=== PATIENT | female | born 1990 | race Caucasian/White ===

== ENCOUNTER 2019-05-07 06:24 | Inpatient (IN) | payer MEDICAID ==
[~2019-05-07] VITALS: Ht 157.5 cm; Wt 77.2 kg
[2019-05-07] VITALS (12 sets, daily range): BP systolic 91–126; BP diastolic 53–78; BMI 22.0
[2019-05-07 07:07] LABS: HEMATOCRIT 35.3 % (36.0-48.0); HEMOGLOBIN 12.1 g/dL (12-16); MCH 26.5 pg (26.0-34.0); MCHC 34.3 g/dL (31.0-37.0); MCV 77.4 fL (80.0-100.0); PLATELET COUNT 61 10x3/uL (130-400); RBC 4.56 10x6/uL (4.00-5.40); RDW 18.1 % (11.5-14.5); WBC 31.6 10x3/uL (4.8-10.8)
[2019-05-07 07:10] LABS: APTT 27.3 SECONDS (22.8-39.4); INR 1.65 (0.85-1.17); PROTIME 19.3 SECONDS (11.6-15.0)
[2019-05-07 07:30] LABS: ALBUMIN 2.3 g/dL (3.4-5.0); ALKALINE PHOSPHATASE 144 U/L (46-116); ALT (SGPT) 25 U/L (10-68); BILIRUBIN - TOTAL 4.57 mg/dL (0.2-1.3); CALC OSMOLALITY 249 mosm/kg (275-300); CALCIUM 7.5 mg/dL (8.5-10.1); CARBON DIOXIDE 22.5 mmol/L (21.0-32.0); CHLORIDE - SERUM 90 mmol/L (98-107); CKMB 0.1 U/L (0.0-3.6); CREATINE KINASE 20 UL (21-215); GLUCOSE 102 mg/dL (74-106); PROTEIN - SERUM 6.3 g/dL (6.4-8.2); SODIUM 125 mmol/L (136-145); TROPONIN-I < 0.017 ng/mL (0.000-0.060); UREA NITROGEN 7 mg/dL (7-18); eGFR NON AFRICAN AMERICAN 70 mL/min (90-120)
[2019-05-07 07:31] LABS: LYMPHOCYTES 1 % (15-50); MONOCYTES 2 % (2-11); NEUTROPHILS 94 % (40-80); PLATELET ESTIMATE DECREASED; PLATELET MORPHOLOGY GIANT PLTS PRESENT
[2019-05-07 07:32] LABS: TOXIC GRANULATION 2+
[2019-05-07 07:40] LABS: POTASSIUM - SERUM 2.7 mmol/L (3.5-5.1)
--- NOTE | 2019-05-07 07:57 | NUR ---
ASSISTED PT TO RESTROOM AND BACK TO BED. PT HAS STAFF MEMBER FROM [facility] AT BEDSIDE WITH HER. NO FURTHER NEEDS AT THIS TIME.
[2019-05-07 08:21] LABS: UDS - AMPHET NEGATIVE QUAL (NEGATIVE); UDS - BARB NEGATIVE QUAL (NEGATIVE); UDS - BENZO NEGATIVE QUAL (NEGATIVE); UDS - COCAINE NEGATIVE QUAL (NEGATIVE); UDS - OPIATE POSITIVE QUAL (NEGATIVE); UDS - PCP NEGATIVE QUAL (NEGATIVE); UDS - THC NEGATIVE QUAL (NEGATIVE)
[2019-05-07 08:29] LABS: APPEARANCE CLEAR (CLEAR); COLOR YELLOW (YELLOW)
[2019-05-07 08:30] LABS: BILIRUBIN NEGATIVE (NEGATIVE); GLUCOSE NEGATIVE (NEGATIVE); KETONE NEGATIVE (NEGATIVE); NITRITE NEGATIVE (NEGATIVE); PROTEIN NEGATIVE (NEGATIVE); UROBILINOGEN NORMAL (NORMAL); WHITE CELLS - URINE 0-5 /hpf (NEGATIVE)
[2019-05-07 08:31] LABS: BACTERIA FEW /hpf (NEGATIVE); EPITHELIAL CELLS OCC /hpf (0-5); RED CELLS - URINE NONE SEEN /hpf (0-5)
[2019-05-07 09:18] LABS: CKMB 0.2 U/L (0.0-3.6); CREATINE KINASE 17 UL (21-215)
[2019-05-07 09:19] LABS: TROPONIN-I < 0.017 ng/mL (0.000-0.060)
--- NOTE | 2019-05-07 10:00 | NUR ---
PT C/O PAIN TO RIGHT FOOT. RIGHT FOOT APPEARS MODERATELY SWOLLEN.
--- NOTE | 2019-05-07 11:35 | NUR ---
ICU OPTOMETRIC TECHNICIAN CALLED TO SAY THEY ARE CHANGING PT'S ROOM NUMBER TO 2309 AND ROOM IS DIRTY. PT WILL BE TRANSPORTED SOON ROOM IS CLEAN.
--- NOTE | 2019-05-07 11:50 | NUR ---
CLINDAMYCIN COMPLETE AT THIS TIME.
--- NOTE | 2019-05-07 12:04 | NUR ---
PATIENT TRANSFERRED TO ICU AT THIS TIME.
[2019-05-07 14:35] LABS: HCG SERUM NEGATIVE (NEGATIVE)
--- NOTE | 2019-05-07 21:00 | NUR ---
PT C/O FEELING ANXIOUS. SHE APPEARS RESTLESS. LIBRIUM AND ATIVAN GIVEN SCHEDULED. SNACKS GIVEN REQUESTED. INSTRUCTED TO CALL FOR HELP BEFORE GETTING OUT OF BED. DENIES FURTHER NEEDS. BED LOW, CALL LIGHT IN REACH.
[2019-05-08] VITALS (24 sets, daily range): BP systolic 94–131; BP diastolic 58–86
--- NOTE | 2019-05-08 02:13 | NUR ---
PT RESTING WITH EYES CLOSED. RESPIRATIONS EVEN AND UNLABORED. AROUSES WITH VERBAL STIMULI. VSS. CALL LIGHT WITHIN REACH AND BED IS LOW.
[2019-05-08 03:52] LABS: BASOPHILS 0.1 % (0-2); EOSINOPHILS 0 % (0-7); HEMATOCRIT 32.2 % (36.0-48.0); HEMOGLOBIN 10.9 g/dL (12-16); IMMATURE GRANULOCYTES 0.8 % (0-5); LYMPHOCYTES 6.2 % (15-50); MCHC 33.9 g/dL (31.0-37.0); MCV 76.7 fL (80.0-100.0); MONOCYTES 4.6 % (2-11); NEUTROPHILS 88.3 % (40-80); PLATELET COUNT 50 10x3/uL (130-400); WBC 22.8 10x3/uL (4.8-10.8)
[2019-05-08 03:53] LABS: ALBUMIN 1.9 g/dL (3.4-5.0); ALKALINE PHOSPHATASE 111 U/L (46-116); BILIRUBIN - TOTAL 3.15 mg/dL (0.2-1.3); C-REACTIVE PROTEIN 15.9 mg/dL (0.0-0.9); CALCIUM 7.4 mg/dL (8.5-10.1); CARBON DIOXIDE 24.5 mmol/L (21.0-32.0); CHLORIDE - SERUM 101 mmol/L (98-107); CREATININE - SERUM 0.8 mg/dL (0.6-1.3); GLUCOSE 103 mg/dL (74-106); PROTEIN - SERUM 5.6 g/dL (6.4-8.2); SODIUM 135 mmol/L (136-145); eGFR NON AFRICAN AMERICAN 90 mL/min (90-120)
[2019-05-08 03:59] LABS: ALT (SGPT) 17 U/L (10-68); CALC OSMOLALITY 268 mosm/kg (275-300); POTASSIUM - SERUM 3.3 mmol/L (3.5-5.1); UREA NITROGEN 10 mg/dL (7-18)
--- NOTE | 2019-05-08 06:16 | NUR ---
AFTER REVIEWING PTS PREVIOUS VITALS HIS SBP WAS > 200. HIS BLOOD PRESSURE CUFF WAS TWISTED AND WAS NOT ON PROPERLY. ADJUSTED AND DID A STAT READING AND IT WAS 150/110.
--- NOTE | 2019-05-08 07:58 | NUR ---
THE PATIENT IS TAKEN BY W/C TO GET A BONE SCAN OF HER RIGHT FOOT R/T PAIN PER PATIENT.
--- NOTE | 2019-05-08 08:22 | NUR ---
THE PATIENT IS BACK FROM HER BONE SCAN. SHE ASKED WHEN IS BREAKFAST AND WHEN WILL SHE GET HER MEDICATION SHE DOES NOT HAVE A CLOCK IN HER ROOM.
--- NOTE | 2019-05-08 08:52 | NUR ---
The patient received an echo in her room and the tech reported that the patient has good EF. She does have a vegetation on her tricuspid valve.
--- NOTE | 2019-05-08 09:08 | NUR ---
The patient requests a medicine for her anxiety. Provided 1 mg IVP ativan. Will monitor.
--- NOTE | 2019-05-08 09:43 | NUR ---
The patient is less anxious, she requests amaris, staff providing her amaris.
--- NOTE | 2019-05-08 10:05 | NUR ---
Entered the patient's room and she asked "When will I get my librium?" Explained to her that she received it at 0900 with her breakfast. She said "When can I get that anxiety medicine?" Explained to her she can have it every three to four hours, will verify and let her know.
--- NOTE | 2019-05-08 10:50 | NUR ---
Radiology called and requested I get the patient to empty her bladder. The patient got up and voided urine. It is dark and she voided about 200 ml. The patient is drinking many amaris this am.
--- NOTE | 2019-05-08 10:51 | NUR ---
Changed the patient's linens as she had spilled ice and water on her bed. Radiology came to pick the patient up in a w/c to take her for another bone scan.
--- NOTE | 2019-05-08 12:14 | NUR ---
Dr. Viveros called and wanted the dx passed onto the primary Dr. The patient has tricuspid valve endocarditis.
--- NOTE | 2019-05-08 12:15 | NUR ---
Called Dr. Carlson and let him know Dr. Viveros's report about the tricuspid valve endocarditis.
--- NOTE | 2019-05-08 13:12 | NUR ---
The patient c/o anxiety. She requests her ativan. Provided Ativan 1 mg IVP, will monitor. The patient requested that this nurse put the times that her Librium is scheduled and she requested that I put the time that she had her Ativan and when she can request it on her white board.
--- NOTE | 2019-05-08 19:00 | NUR ---
ASSESSMENT COMPLETED. PATIENT ASKING WHEN SHE CAN HAVE ATIVAN AGAIN. REQUEST SEVERAL SNACKS. PIV LEFT FOREARM WITH IVF. BREATHING ON ROOM AIR
--- NOTE | 2019-05-08 20:11 | MORECARE ---
CASE MANAGEMENT DISCHARGE SUMMARY PATIENT: VALERY BLANCHARD UNIT: [id number] ADM DATE: 05/07/19 AGE: 29 : [birth year] SEX: F ROOM/BED: D.2309 AUTHOR: COLTEN,DOC PHYSICIAN: REFERRING PHYSICIAN: GERMÁN BARTON MD DATE OF SERVICE: 05/08/19 Discharge Plan Patient Name: VALERY BLANCHARD Facility: [facility]:[place] : 1990 Planned Disposition: Anticipated Discharge Date: Discharge Date: Expected LOS: Initial Reviewer: [email or web address] Initial Review Date: 05/07/2019 Generated: 05/08/19 9:10 pm DCP- Discharge Planning Updated by [email or web address]: Griselda Miner on 05/07/19 12:[address] DC PLAN: Return to [facility] - Can't be dc's on Benzo's. ANTICIPATED DC NEEDS: denied known dc needs at time of assessment in the ER. CM met with patient to complete initial dc planning assessment. CM educated patient on the CM role and verbal consent given by patient to complete assessment. CM verified patient's address, phone number, and emergency contact phone numbers. Patient is currently in drug rehab (admitted on 05/06/2019) for a heroin addiction. At discharge patient plans to return to [facility] and feels this is a safe discharge. Patient reports she has been using heroin since for 9 years. She has been through 2 rehab programs and the longest length of time she has been off Heroin in the past 9 years is 6 months. She asked if the doctor was going to give her something for the withdraws? CM spoke to Dr. Melgar regarding this issue and he had CM contact [facility] to ask if it is OK to prescribe according to their policy. CM called, , spoke to Ms. Parham who stated it is OK to prescribe benzos as treatment in hospital but the patient cant return on benzos. CM relayed this message to both Dr. Melgar and Dr. Barton. Librium ordered by Dr. Melgar to assist with withdraw's. Patient reports she self admitted to [facility] for assistance with drug addiction. She was not court ordered. Transportation provider at discharge will be [facility]. CM will continue to follow and will assist as needed with dc plans/needs. Griselda Miner RN, [facility] DCPIA - Discharge Planning Initial Assessment Updated by [email or web address]: Griselda Miner on 05/07/19 1:31 pm * Is the patient Alert and Oriented? Yes * How many steps to enter\exit or inside your home? None * PCP No PCP * Pharmacy [facility] * Preadmission Environment Other * Other Environment [facility] * Facility Name [facility] * ADLs Independent * Equipment None * List name and contact numbers for known caregivers / representatives who currently or will assist patient after discharge: None - per patient. * Verbal permission to speak to the caregivers and representatives has been obtained from the patient. Yes * Community resources currently utilized None * Additional services required to return to the preadmission environment? No * Can the patient safely return to the preadmission environment? Yes * Has this patient been hospitalized within the prior 30 days at any hospital? No Patient Name: VALERY BLANCHARD Page [id number] at 2010 All edits/amendments must be made on the electronic document DICTATION DATE: 05/08/192009 [employer] LAW CLERK: ABIEL 05/08/192009 RPT#: [id number] DC DATE: STATUS: ADM IN [facility] [address] [place] [address] END OF REPORT
--- NOTE | 2019-05-08 20:17 | MORECARE ---
CASE MANAGEMENT DISCHARGE SUMMARY PATIENT: VALERY BLANCHARD UNIT: [id number] ADM DATE: 05/07/19 AGE: 29 : [birth year] SEX: F ROOM/BED: D.2309 AUTHOR: COLTEN,DOC PHYSICIAN: REFERRING PHYSICIAN: GERMÁN BARTON MD DATE OF SERVICE: 05/08/19 Discharge Plan Patient Name: VALERY BLANCHARD Facility: [facility]:[place] : 1990 Planned Disposition: Anticipated Discharge Date: Discharge Date: Expected LOS: Initial Reviewer: [email or web address] Initial Review Date: 05/07/2019 Generated: 05/08/19 9:17 pm DCP- Discharge Planning Updated by [email or web address]: Griselda Miner on 05/07/19 12:[address] DC PLAN: Return to [facility] - Can't be dc's on Benzo's. ANTICIPATED DC NEEDS: denied known dc needs at time of assessment in the ER. CM met with patient to complete initial dc planning assessment. CM educated patient on the CM role and verbal consent given by patient to complete assessment. CM verified patient's address, phone number, and emergency contact phone numbers. Patient is currently in drug rehab (admitted on 05/06/2019) for a heroin addiction. At discharge patient plans to return to [facility] and feels this is a safe discharge. Patient reports she has been using heroin since for 9 years. She has been through 2 rehab programs and the longest length of time she has been off Heroin in the past 9 years is 6 months. She asked if the doctor was going to give her something for the withdraws? CM spoke to Dr. Melgar regarding this issue and he had CM contact [facility] to ask if it is OK to prescribe according to their policy. CM called, , spoke to Ms. Parham who stated it is OK to prescribe benzos as treatment in hospital but the patient cant return on benzos. CM relayed this message to both Dr. Melgar and Dr. Barton. Librium ordered by Dr. Melgar to assist with withdraw's. Patient reports she self admitted to [facility] for assistance with drug addiction. She was not court ordered. Transportation provider at discharge will be [facility]. CM will continue to follow and will assist as needed with dc plans/needs. Griselda Miner RN, [facility] DCPIA - Discharge Planning Initial Assessment Updated by [email or web address]: Griselda Miner on 05/07/19 1:31 pm * Is the patient Alert and Oriented? Yes * How many steps to enter\exit or inside your home? None * PCP No PCP * Pharmacy [facility] * Preadmission Environment Other * Other Environment [facility] * Facility Name [facility] * ADLs Independent * Equipment None * List name and contact numbers for known caregivers / representatives who currently or will assist patient after discharge: None - per patient. * Verbal permission to speak to the caregivers and representatives has been obtained from the patient. Yes * Community resources currently utilized None * Additional services required to return to the preadmission environment? No * Can the patient safely return to the preadmission environment? Yes * Has this patient been hospitalized within the prior 30 days at any hospital? No Patient Name: VALERY BLANCHARD Page [id number] at 2017 All edits/amendments must be made on the electronic document DICTATION DATE: 05/08/19 2017 ELEVATOR CONSTRUCTOR: ABIEL 05/08/19 2017 RPT#: [id number] DC DATE: STATUS: ADM IN [facility] [address] [place] [address] END OF REPORT
--- NOTE | 2019-05-08 21:00 | NUR ---
HAD PRN ATIVAN PER ORDERS. REQUESTING MORE SNACKS. INDEPENDENT WITH REPOSITIONING
--- NOTE | 2019-05-08 23:00 | NUR ---
RE-ASSESSMENT COMPLETED. NO CHANGES SINCE LAST ASSESSMENT
[2019-05-09] VITALS (24 sets, daily range): BP systolic 88–174; BP diastolic 62–98
--- NOTE | 2019-05-09 01:00 | NUR ---
PATIENT CONT TO ASK FOR ATIVAN FREQUENTLY AND SNACKS WELL. OTHER THAN THOSE 2 THING, DENIES ANY NEEDS
--- NOTE | 2019-05-09 03:00 | NUR ---
RE-ASSESSMENT COMPLETED. NO CHANGES SINCE LAST ASSESSMENT
[2019-05-09 04:26] LABS: ALBUMIN 1.8 g/dL (3.4-5.0); ALKALINE PHOSPHATASE 100 U/L (30-120); ALT (SGPT) 20 U/L (10-68); BILIRUBIN - TOTAL 2.01 mg/dL (0.2-1.3); C-REACTIVE PROTEIN 9.8 mg/dL (0.0-0.9); CHLORIDE - SERUM 101 mmol/L (98-107); CREATININE - SERUM 0.9 mg/dL (0.6-1.3); GLUCOSE 111 mg/dL (74-106); PROTEIN - SERUM 5.6 g/dL (6.4-8.2); SODIUM 131 mmol/L (136-145); eGFR NON AFRICAN AMERICAN 79 mL/min (90-120)
[2019-05-09 04:28] LABS: HEMATOCRIT 32.2 % (36.0-48.0); HEMOGLOBIN 10.7 g/dL (12-16); MCH 25.9 pg (26.0-34.0); MCHC 33.2 g/dL (31.0-37.0); PLATELET COUNT 52 10x3/uL (130-400); RBC 4.13 10x6/uL (4.00-5.40); RDW 18.6 % (11.5-14.5); WBC 18.1 10x3/uL (4.8-10.8)
[2019-05-09 04:33] LABS: CALC OSMOLALITY 260 mosm/kg (275-300); UREA NITROGEN 5 mg/dL (7-18)
[2019-05-09 04:35] LABS: LYMPHOCYTES 12 % (15-50); MONOCYTES 6 % (2-11); NEUTROPHILS 80 % (40-80); PLATELET ESTIMATE DECREASED
--- NOTE | 2019-05-09 05:00 | NUR ---
WATCHING TV. CONT TO SNACK ON FOOD. DENIES ANY OTHER NEEDS
--- NOTE | 2019-05-09 08:24 | NUR ---
0700 AM ASSESMENT IS COMPLETE SEE FLOW SHEET FOR FINDINGS.. PT IS AWAKE AND APPROPRIATE IN RESPONSES.. REQUESTING ATIVAN FOR HER "NERVES" 0730 ATIVAN GIVEN PER ORDER 0800 BRESKFAST SERVED.. FEEDING SELF
--- NOTE | 2019-05-09 09:35 | NUR ---
0900 DIET EATEN REQUESTING MEDS VOIDED WITH BM IN BSC..
--- NOTE | 2019-05-09 11:17 | NUR ---
1000 PT VOMITED ALL OVER SELF AND BEDCLOTHES.. COMPLETE CHG BATH WITH LINEN CHANGE DONE.. CONTINUOUSLY REQUESTING ATIVAN 1100 DR LAY IN TO SEE PT UPDATE GIVEN..
--- NOTE | 2019-05-09 14:04 | NUR ---
1200 SLEEPING WIHTOUT VISITORS 1315 AWAKE IV FL CHANGED
[2019-05-09 14:19] LABS: % SATURATION 8 % (15-55); IRON 19 ug/dl (35-150); TOTAL IRON BIND CAPACITY 227 ug/dl (260-445); UNSAT IRON BIND CAPACITY 208 ug/dl (150-375)
--- NOTE | 2019-05-09 17:39 | NUR ---
1730 CONITUES TO SLEEP EASILY ROUSED DIET TRAY HELD AT THIS TIME....
--- NOTE | 2019-05-09 18:10 | NUR ---
1800 AWAKE .. USING BSC.. REQUEST SNACK AND MEDS ..
--- NOTE | 2019-05-09 19:55 | NUR ---
PT ASLEEP, AROUSES TO VOICE, C/O ANKLE PAIN 01/22 - "CANT USE IT, ALWAYS GETS THIS WAY WHEN I HAVE AN INFECTION IN MY BLOOD IT ATTACKS MY JOINTS" DENIES NAUSEA, RECEIVED COKE WITH ICE PER REQUEST, AFEBRILE, AAOX4 - SHIFT ASSESSMENT COMPLETED SEE FLOWSHEET
--- NOTE | 2019-05-09 23:15 | NUR ---
REASSESSMENT COMPLETED SEE FLOWSHEET
[2019-05-10] VITALS (19 sets, daily range): BP systolic 99–126; BP diastolic 56–731; Ht 157.5 cm; Wt 77.2 kg
--- NOTE | 2019-05-10 | NUR ---
IV FLUIDS NOT RUNNING, IV HAS PAIN AND TENDERNESS AT THE SITE, RN IV START ATTEMPT X5
--- NOTE | 2019-05-10 03:15 | NUR ---
REASSESSMENT COMPLETED SEE FLOWSHEET
[2019-05-10 04:07] LABS: BASOPHILS 0.1 % (0-2); EOSINOPHILS 0.5 % (0-7); HEMATOCRIT 30.6 % (36.0-48.0); HEMOGLOBIN 10.3 g/dL (12-16); IMMATURE GRANULOCYTES 1.5 % (0-5); LYMPHOCYTES 12.5 % (15-50); MCH 26.5 pg (26.0-34.0); MCHC 33.7 g/dL (31.0-37.0); MCV 78.7 fL (80.0-100.0); MONOCYTES 7.8 % (2-11); NEUTROPHILS 77.6 % (40-80); RBC 3.89 10x6/uL (4.00-5.40); WBC 14.4 10x3/uL (4.8-10.8)
[2019-05-10 04:32] LABS: PLATELET COUNT 46 10x3/uL (130-400)
--- NOTE | 2019-05-10 04:45 | NUR ---
IV ACCESS REESTABLISHED AT THIS TIME RUNNING MEDS VERY SLOW THROUGH SMALL IV
[2019-05-10 04:47] LABS: ALBUMIN 1.8 g/dL (3.4-5.0); ALKALINE PHOSPHATASE 101 U/L (30-120); ALT (SGPT) 30 U/L (10-68); BILIRUBIN - TOTAL 1.96 mg/dL (0.2-1.3); CALC OSMOLALITY 258 mosm/kg (275-300); CALCIUM 7.3 mg/dL (8.5-10.1); CARBON DIOXIDE 19.6 mmol/L (21.0-32.0); CHLORIDE - SERUM 103 mmol/L (98-107); CREATININE - SERUM 0.9 mg/dL (0.6-1.3); GLUCOSE 111 mg/dL (74-106); POTASSIUM - SERUM 4.8 mmol/L (3.5-5.1); PROTEIN - SERUM 5.8 g/dL (6.4-8.2); SODIUM 130 mmol/L (136-145); UREA NITROGEN 5 mg/dL (7-18); eGFR NON AFRICAN AMERICAN 79 mL/min (90-120)
--- NOTE | 2019-05-10 07:12 | NUR ---
ALIREZA NOTIFIED OF CRITICAL LAB RESULTS - NEW ORDERS RECEIVED
--- NOTE | 2019-05-10 08:44 | NUR ---
0700 AM REPORT RECIEVED AND CARE ASSUMED OF PATIENT SEE FLOW SHEET FOR ASSESMENT FINDINGS... PT IS AWAKE AND ALERT REQUESTING MEDS 0800 BREAKFAST SERVEDD AND PT IS FEEDING SELF..
--- NOTE | 2019-05-10 09:45 | NUR ---
0900 MEDS GIVEN NEW BAG IV FL HUNG CONTINUES TO INFUSE INTO LEFT WRIST
--- NOTE | 2019-05-10 14:39 | NUR ---
0930 PT REQUEST ATIVAN.. GIVEN... 1030 SLEEPIING 1130 LUNCH SREVED FEEDING SELF.. 1230 DR LAY IN TO SEE PT.. ORDERS TO TRANSFER PATIENT TO [facility] FOR INFECTIOUS DISEASE COVERAGE AND CV 1300 DR KWAN IN TO SEE PT AND AGREES WITH DR LAY... 1330 [facility] CALLED AND FACESHEET FAXED TO THEM 1415 DR LAY IN UNIT SPEAKING WITH [facility] ON PHONE 1430 PT REQUEST MEDS..
--- NOTE | 2019-05-10 15:32 | NUR ---
PT CALLED NURSE INTO ROOM, NOTIFIED THAT SHE HAD BEEN THROWING UP, NOTED BRIGHT RED BLOOD EMESIS APPROX [address] LAY NOTIFIED OF THIS. ORDERS RECIEVED.
[2019-05-10 15:58] LABS: HEMATOCRIT 30.6 % (36.0-48.0)
[2019-05-10 16:09] LABS: APTT 28.9 SECONDS (22.8-39.4); INR 1.42 (0.85-1.17); PROTIME 17.3 SECONDS (11.6-15.0)
--- NOTE | 2019-05-10 16:40 | NUR ---
1630 IM INJECTION OF AQUAMYPHYTN GIVEN ... PER ORDER.. PROTONIX DRIP ANNMARIE PT STATES THAT LEFT WRIST IV IS PAINFUL.. UNABLE TO FLUSH OR GET A FREE FLOW ON PIV FLUID..
--- NOTE | 2019-05-10 17:25 | NUR ---
1720 [facility] CALLED WITH FELICIA ON THE LINE UPDATES RE PATIENT GIVEN TO BERTO DUARTE.. TRANSFER BACK AGREEMENT RECIEVED VIA FAX AND HOUSE [facility] [place] CALLLED TO SIGN..
--- NOTE | 2019-05-10 18:33 | NUR ---
1800 PT ACCEPTED TO [facility] E4 ROOM 401 REPORT CALLED TO CRISELDA [facility] [employer] ARRANGING TRANSPORT.. PT REMAINS WIHHTOUT IV ACCESS [facility] AWARE.. PT IS WITHOUT FURTHUR GI ISSUES AT THIS TIME..
--- NOTE | 2019-05-10 19:00 | NUR ---
Report received from off going nurse. Pt is laying in bed with eyes closed at this time. Waiting for transport to [facility] at this time. No needs voiced. No s/s of distress noted. Will continue to monitor.
--- NOTE | 2019-05-10 21:50 | NUR ---
[facility] ARRIVED TO TRANSPORT PT TO [facility].
--- NOTE | 2019-05-11 09:07 | MORECARE ---
CASE MANAGEMENT DISCHARGE SUMMARY PATIENT: VALERY BLANCHARD UNIT: [id number] ADM DATE: 05/07/19 AGE: 29 : [birth year] SEX: F ROOM/BED: D.2309 AUTHOR: COLTEN,DOC PHYSICIAN: REFERRING PHYSICIAN: GERMÁN BARTON MD DATE OF SERVICE: 05/11/19 Discharge Plan Patient Name: VALERY BLANCHARD Facility: [facility]:[place] : 1990 Planned Disposition: Anticipated Discharge Date: Discharge Date: 05/10/2019 Expected LOS: Initial Reviewer: [email or web address] Initial Review Date: 05/07/2019 Generated: 05/11/19 10:07 am DCP- Discharge Planning Updated by [email or web address]: Griselda Miner on 05/07/19 12:[address] DC PLAN: Return to [facility] - Can't be dc's on Benzo's. ANTICIPATED DC NEEDS: denied known dc needs at time of assessment in the ER. CM met with patient to complete initial dc planning assessment. CM educated patient on the CM role and verbal consent given by patient to complete assessment. CM verified patient's address, phone number, and emergency contact phone numbers. Patient is currently in drug rehab (admitted on 05/06/2019) for a heroin addiction. At discharge patient plans to return to [facility] and feels this is a safe discharge. Patient reports she has been using heroin since for 9 years. She has been through 2 rehab programs and the longest length of time she has been off Heroin in the past 9 years is 6 months. She asked if the doctor was going to give her something for the withdraws? CM spoke to Dr. Melgar regarding this issue and he had CM contact [facility] to ask if it is OK to prescribe according to their policy. CM called, , spoke to Felisha Dione who stated it is OK to prescribe benzos as treatment in hospital but the patient cant return on benzos. CM relayed this message to both Dr. Melgar and Dr. Barton. Librium ordered by Dr. Melgar to assist with withdraw's. Patient reports she self admitted to [facility] for assistance with drug addiction. She was not court ordered. [facility] CM will continue to follow and will assist as needed with dc plans/needs. Griselda Miner RN, [facility] DCPIA - Discharge Planning Initial Assessment Updated by [email or web address]: Griselda Miner on 05/07/19 1:31 pm * Is the patient Alert and Oriented? Yes * How many steps to enter\exit or inside your home? None * PCP No PCP * Pharmacy [facility] * Preadmission Environment Other * Other Environment [facility] * Facility Name [facility] * ADLs Independent * Equipment None * List name and contact numbers for known caregivers / representatives who currently or will assist patient after discharge: None - per patient. * Verbal permission to speak to the caregivers and representatives has been obtained from the patient. Yes * Community resources currently utilized None * Additional services required to return to the preadmission environment? No * Can the patient safely return to the preadmission environment? Yes * Has this patient been hospitalized within the prior 30 days at any hospital? No Last DP export: 05/08/19 7:17 p Patient Name: VALERY BLANCHARD Page [id number] at 0907 All edits/amendments must be made on the electronic document DICTATION DATE: 05/11/19906 ADVENTURE CHALLENGE INSTRUCTOR: ABIEL 05/11/19906 RPT#: [id number] DC DATE:05/10/19 STATUS: DIS IN [facility] [address] [place] [address] END OF REPORT
--- NOTE | 2019-05-12 11:24 | EC ---
PATIENT:VALERY BLANCHARD DATE OF SERVICE: 05/07/19 SEX: F MEDICAL RECORD: [id number] DATE OF : [birth year] LOCATION:[facility] D.230 AGE OF PATIENT: 29 ADMISSION DATE: 05/07/19 REFERRING PHYSICIAN: INTERPRETING PHYSICIAN: MARILIN WILHELM MD ECHOCARDIOGRAM REPORT ECHO CHARGES 4 ECHO COMPLETE Date: 05/08/19 CLINICAL DIAGNOSIS: HX: VALVE REPLACEMENT, IV DRUG USER, R/O VEG ECHOCARDIOGRAPHIC MEASUREMENTS (adult normal given) AC root (d.<3.7cm) 2.4 cm LV Septum d (<1.2 cm> 0.5 cm Valve Excursion 1.7 cm LV Septum (systole) 0.8 cm Left Atria (s.<4.0cm> 2.3 cm LVPW d(<1.2cm) 0.6 cm RV (d.<2.3cm) 2.7 cm LVPW (sytole) 0.7 cm LV diastole(<5.6CM) 4.7 cm MV E-F(>70mm/sec) cm LV systole 3.4 cm LVOT Diameter 1.8 cm MV exc.(>10mm) cm Est.ejection fraction (50-75%) % DOPPLER: LVIT cm/sec A 60 cm/sec E 66 cm/sec LA cm/sec RVSP 20.7 mmHg LVOT 107 cm/sec AOP1/2T m/s Asc. Ao 114 cm/sec RVOT 58 cm/sec RA cm/sec PA 65 cm/sec AV Gradient Peak 5.2 mmHg AV Mean 8.3 mmHg AV Area 2.5 cm MV Gradient Peak 3.4 mmHg MV Mean 1.9 mmHg MV Area cm COMMENTS: Environmental Manager: Dajuan RODRIGUEZ Marshmallow Runner: 2 Dr. Keen TAPE# PACS Pericardial Effusion N DATE OF SERVICE: ECHOCARDIOGRAM FINDINGS: 1. Left ventricular chamber size is within normal limits. Left ventricular systolic function is normal. Overall ejection fraction estimated at 60%. 2. Left atrium, right atrium, and right ventricular chamber sizes are within normal limits. 3. Valvular structures: There does appear to be vegetative endocarditis on the ECHOCARDIOGRAM REPORT [id number] VALERY BLANCHARD tricuspid valve. The remaining valvular structures have normal structure and motion. 4. Doppler interrogation reveals mild tricuspid regurgitation, no other valvular insufficiency or stenosis. Pulmonary systolic pressure estimated at 21 mmHg. 5. No evidence of pericardial effusion or left ventricular thrombus. 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 TRANSINT:[id number] Voice Confirmation ID: [id number] DOCUMENT ID: [id number] MARILIN WILHELM MD at 1124 CC: [id number] DICTATION DATE: 05/08/19 1212 WELLNESS ASSISTANT: 05/08/19 1329 DIS IN 05/10/19 [place] [id number] [place] [id number]
[2019-05-12 17:08] LABS: HEPATITIS C ANTIBODY <0.1 S/CO RAT (0.0-0.9)
== END 2019-05-10 21:50 | disposition short-term general hospital (02) | DRG 871 ==
LOC: D.ER 06:24 → D.ICU 10:50
PROVIDERS: Emergency Medicine; Family Medicine; Internal Medicine Nephrology; ADMIT Family Medicine; ATTEND Family Medicine
DX: A41.02 Sepsis due to Methicillin resistant Staphylococcus aureus (principal); E43 Unspecified severe protein-calorie malnutrition; N39.0 Urinary tract infection, site not specified; L03.90 Cellulitis, unspecified; F11.23 Opioid dependence with withdrawal; L01.00 Impetigo, unspecified; R00.0 Tachycardia, unspecified; I07.9 Rheumatic tricuspid valve disease, unspecified; D50.9 Iron deficiency anemia, unspecified; Z68.22 Body mass index [BMI] 22.0-22.9, adult